=== PATIENT | male | born 2000 ===

== ENCOUNTER 2021-04-01 18:24 | Emergency (ER) | payer SELFPAY ==
--- NOTE | 2021-04-01 19:29 | Emergency Department Report ---
HPI - General Chief Complaint: Neuro Symptoms/Deficit Time Seen by Provider: 04/01/21 19:18 - HPI HPI: 20-year-old male presents to the emergency department with a complaint of a 3-day history of left-sided facial numbness, facial droop, inability to close his left eye with some blurred vision, and a headache to the top of his head. No past medical history. This has never occurred before. He has not taken anything for symptoms prior to presentation. He denies any fever, numbness to the extremities, focal or lateralizing weakness of the extremities. ED Past Medical Hx - Medications Home Medications: Home Medications Medication Instructions Recorded Confirmed Last Taken Type Valacyclovir HCl [Valacyclovir] 1,000 mg PO Q8H #21 04/01/21 Unknown Rx predniSONE [Deltasone] 50 mg PO QDAY #6 tab 04/01/21 Unknown Rx ED Review of Systems ROS: Stated complaint: NEURO SYMPTOMS Other details as noted in HPI Comment: All other systems reviewed and negative Constitutional: denies: chills, fever Eyes: vision change (Intermittent blurred vision), other (Inability to fully close left eye). denies: eye pain ENT: other (Left-sided facial droop). denies: ear pain, throat pain Respiratory: denies: cough, shortness of breath Cardiovascular: denies: chest pain, palpitations Gastrointestinal: denies: abdominal pain, vomiting Genitourinary: denies: dysuria, discharge Musculoskeletal: denies: back pain, arthralgia Skin: denies: rash, lesions Neurological: headache, numbness (left face). denies: weakness Physical Exam - Physical Exam Vital Signs: Vital Signs 04/01/21 19:10 Temperature 98.4 F Pulse Rate 66 Respiratory 18 Rate Blood Pressure 115/73 [Right] O2 Sat by Pulse 98 Oximetry Physical Exam: GENERAL: The patient is well-developed well-nourished. HENT: Normocephalic. Atraumatic. Patient has moist mucous membranes. EYES: Extraocular motions are intact. Pupils equal reactive to light bilaterally. Unable to close left eyelid. NECK: Supple. Trachea is midline. CHEST/LUNGS: Clear to auscultation. There is no respiratory distress noted. HEART/CARDIOVASCULAR: Regular. There is no tachycardia. There is no murmur. ABDOMEN: Abdomen is soft, nontender. Patient has normal bowel sounds. There is no abdominal distention. SKIN: Skin is warm and dry. NEURO: The patient is awake, alert, and oriented. The patient is cooperative. Left-sided facial paresis with a left-sided facial droop, unable to raise the left eyebrow and unable to close the left eyelid. Normal speech. No pronator drift or dysmetria. MUSCULOSKELETAL: There is no tenderness or deformity. There is no limitation range of motion. ED Course Vital Signs 04/01/21 19:10 Temperature 98.4 F Pulse Rate 66 Respiratory 18 Rate Blood Pressure 115/73 [Right] O2 Sat by Pulse 98 Oximetry ED Medical Decision Making - Radiology Data Radiology results: report reviewed CT head/brain wo con INDICATION: headache, facial numbness and droop. TECHNIQUE: Routine CT head. All CT scans at this location are performed using CT dose reduction for ALARA by means of automated exposure control. COMPARISON: None. FINDINGS: Intracranial: [place]-white matter differentiation is maintained. No intracranial hemorrhage. No extra axial collection. No hydrocephalus. No herniation. Sinuses: Moderate mucosal thickening in the maxillary sinuses and ethmoid air cells. Mastoid air cells are essentially clear.. Orbits: Globes are intact. Calvarium: No acute fracture. IMPRESSION: 1. No acute intracranial abnormality. - Medical Decision Making This patient presents with a 3-day history of left-sided facial paralysis in which he has a mouth droop, he is unable to close his left eyelid, and he is unable to raise his left eyebrow. This appears most consistent with Mackenzie's palsy. However since the patient also complained of having a headache, a CT scan of the head without contrast was completed that did not show any evidence of hemorrhage or large vessel occlusion. He was placed on prednisone and valacyclovir. He will be discharged home to follow-up with primary care and has been given a referral for a local neurologist. He will return to the emergency department with any worsening of his symptoms or with any acute distress. Critical Care Time: No Critical care attestation.: If time is entered above; I have spent that time in minutes in the direct care of this critically ill patient, excluding procedure time. ED Disposition Clinical Impression: Mackenzie's palsy Disposition: HOME / SELF CARE / HOMELESS Is pt being admited?: No Condition: Stable Instructions: Mackenzie Palsy, Adult Additional Instructions: Please follow-up with a primary care physician in the next few days. I have given you a referral for a local primary care physician, Dr. Duran, and a primary care clinic, [facility]. I am giving you a referral for a local neurologist, Dr. Frias, to follow-up regarding your Mackenzie's palsy. Return to the emergency department with any worsening of your symptoms, new or concerning symptoms not addressed during this current emergency department visit, or with any acute distress. Prescriptions: predniSONE [Deltasone] 50 mg PO QDAY #6 tab Valacyclovir HCl [Valacyclovir] 1,000 mg PO Q8H #21 Referrals: ELHAM DURAN MD [Staff Physician] - 3-5 Days ANAY FRIAS MD [Referring] - 3-5 Days [facility] [Provider Group] - 3-5 Days Time of Disposition: 20:24 Print Language: SLOVAK
[2021-04-01] MEDS ORDERED: valACYclovir 500 MG TAB PO ONE (19:42)
[2021-04-01] MEDS ORDERED: predniSONE 20 MG TAB PO ONE (19:42)
[2021-04-01 19:55] VITALS: BP 113/69
--- NOTE | 2021-04-01 20:14 | Cat Scan Report ---
CT head/brain wo con INDICATION: headache, facial numbness and droop. TECHNIQUE: Routine CT head. All CT scans at this location are performed using CT dose reduction for A OLIMPIA by means of automated exposure control. COMPARISON: None. FINDINGS: Intracranial: [place]-white matter differentiation is maintained. No intracranial hemorrhage. No extra a xial collection. No hydrocephalus. No herniation. Sinuses: Moderate mucosal thickening in the maxillary sinuses and ethmoid air cells. Mastoid air cell s are essentially clear.. Orbits: Globes are intact. Calvarium: No acute fracture. IMPRESSION: 1. No acute intracranial abnormality. Signer Name: Pablo Zayas MD Signed: 04/01/2021 8:10 PM Workstation Name: [id number]
== END 2021-04-01 20:00 | disposition home or self-care (01) ==
LOC: ED 18:24
DX: G51.0 Bell's palsy (principal)
CPT/HCPCS: 70450; 99283; J7512